=== PATIENT | male | born 1955 | race Caucasian/White ===

== ENCOUNTER 2021-12-23 08:15 | Day surgery (SDC) | payer OTHER, SELFPAY ==
[~2021-12-23] VITALS: Ht 167.6 cm; Wt 72.6 kg
[2021-12-23] MEDS ORDERED: NS 250 ML IV.SOLN IV ONE (11:20)
[2021-12-23] MEDS ORDERED: ARTICAINE HCL/EPINEPHRINE 4%/1:200,000 BIT 1.7 ML CARTRIDGE IJ ONE (11:20)
[2021-12-23] MEDS ORDERED: NS IRRIG SOLN 1000 ML IR ONE (11:20)
[2021-12-23 14:35] VITALS: BP_SYST 145
== END 2021-12-23 11:41 | disposition home or self-care (01) ==
LOC: SDS 08:15 → SMU 08:34 → SDS 11:41
PROVIDERS: ATTEND Dentist General Practice
DX: M27.2 Inflammatory conditions of jaws (principal); M41.9 Scoliosis, unspecified; M17.12 Unilateral primary osteoarthritis, left knee; F17.210 Nicotine dependence, cigarettes, uncomplicated; Z88.0 Allergy status to penicillin; Z79.899 Other long term (current) drug therapy; Z20.822 Contact with and (suspected) exposure to COVID-19
CPT/HCPCS: 21026; 21215; 21248; 36415; 70140; 87426; C1713; J7050